=== PATIENT | female | born 1960 | race Caucasian/White ===

== ENCOUNTER 2016-10-14 14:49 | Day surgery (SDC) | payer BC ==
--- NOTE | ~2016-10-14 | OP ---
Record Of Operation [facility] [address] [place]. [address] NAME: MELANIE HERNANDEZ : 56 STATUS : [facility]#: [id number] AGE: 56 ADM/REG DATE : 10/14/16 MR#: [id number] REPORT SERV DATE: 10/14/16 DICTATED BY: DEANDRE FLEMING DATE: 10/14/16 REPORT STATUS : Draft TRANSCRIBED BY: MODReal DATE: 10/14/16 DATE OF PROCEDURE: 10/14/2016 PREOPERATIVE DIAGNOSES: 1. Left ureteral stone. 2. Left renal stones. 3. Urinary tract infection. POSTOPERATIVE DIAGNOSES: 1. Left ureteral stone. 2. Left renal stones. 3. Urinary tract infection. PROCEDURE PERFORMED: Cystoscopy, left retrograde pyelogram, left ureteral stent insertion. ANESTHESIA: General. ESTIMATED BLOOD LOSS: None. INDICATIONS: This is a 56-year-old white female, who presented to the office today with left flank pain and gross hematuria. She was found to have infected appearing urine. A noncontrast CT of the abdomen and pelvis was performed, showing an obstructing left ureteral stone adjacent to L5 as well as bilateral nonobstructing renal calculi. She had fairly marked left hydronephrosis as well as perinephric inflammatory changes. We elected to proceed with cystoscopy and ureteral stent placement today. Risks of infection, bleeding, failure, and need for further surgery have been discussed. PROCEDURE IN DETAIL: The patient was taken to the operating room and underwent a general anesthetic. She was placed in the lithotomy position on the table, and her external genitalia were sterilely prepped and draped. The 22-Mauritian cystoscope sheath with 30-degree lens was inserted under direct vision per urethra with the aid of the video monitor. There was a prominent cystocele. Single orifices were seen bilaterally. The urine in the bladder was somewhat cloudy. The bladder was actually irrigated and drained a couple of times to improve visibility. The left orifice was cannulated with a 5-Mauritian open-ended catheter and a retrograde pyelogram was obtained showing a normal caliber distal ureter. There was a stone in the left ureter adjacent to the L5 vertebral body which was obstructing and proximal to this, there was moderate hydroureteronephrosis. I was able to advance a 5- Mauritian open-ended catheter past the stone up into the collecting system of the kidney and the urine which egress was whitish in color. An 0.038 guidewire was advanced up into the collecting system of the kidney and over this, a 6-Mauritian x 28 cm Contour stent was advanced such that the proximal end of the stent was observed to coil in the renal pelvic region of the left kidney under fluoroscopic guidance and the distal end of the stent was visually observed to coil in the bladder following removal of the guidewire. We got an egress of whitish debris laid in urine. The bladder was drained. All endoscopic apparatus was removed. A brief bimanual pelvic exam confirmed a significant cystocele. The patient was then taken to recovery in stable condition. Record Of Operation [place] [id number] [facility] [place]. [address] NAME: MELANIE HERNANDEZ : 56 STATUS : [facility] PAT#: [id number] AGE: 56 ADM/REG DATE : 10/14/16 MR#: [id number] REPORT SERV DATE: 10/14/16 DICTATED BY: DEANDRE FLEMING DATE: 10/14/16 REPORT STATUS : Draft TRANSCRIBED BY: ADRIÁN DATE: 10/14/16 CYNTHIA/ADRIÁN Deandre Fleming M.D. / [id number] CC: Deandre Fleming M.D.
[2016-10-14 15:33] LABS: HEMATOCRIT 35.9 % (36.0-48.0); HEMOGLOBIN 12.3 g/dL (12.0-16.0)
[2016-10-21] MEDS ORDERED: AZO STANDARD PO (15:23)
[2016-10-21] MEDS ORDERED: ANTIBIOTIC (15:24)
== END 2016-10-14 20:14 | disposition home or self-care (01) ==
LOC: SDC 14:49
PROVIDERS: Urology
PROC: BT1FYZZ Fluoroscopy of Left Kidney, Ureter and Bladder using Other Contrast (ICD-10-PCS; 2016-10-14)
PROC: 0T778DZ Dilation of Left Ureter with Intraluminal Device, Via Natural or Artificial Opening Endoscopic (ICD-10-PCS; principal; 2016-10-14 15:15)
DX: N13.6 Pyonephrosis (principal); Z79.899 Other long term (current) drug therapy
CPT/HCPCS: 74420; 85014; 85018; 93005; A9270-GY; C1758; C2617; J1956; J2250; J2405; J3010; Q9967

== ENCOUNTER 2016-10-27 07:33 | Day surgery (SDC) | payer BC ==
--- NOTE | ~2016-10-27 | OP ---
Record Of Operation [facility] [address] [place]. [address] NAME: MELANIE HERNANDEZ : 56 STATUS : [facility]#: [id number] AGE: 56 ADM/REG DATE : 10/27/16 MR#: [id number] REPORT SERV DATE: 10/27/16 DICTATED BY: DEANDRE FLEMING DATE: 10/27/16 REPORT STATUS : Draft TRANSCRIBED BY: MODReal DATE: 10/27/16 DATE OF PROCEDURE: 10/27/2016 PREOPERATIVE DIAGNOSES: 1. Left ureteral and left renal stones. 2. History of Escherichia coli urinary tract infection, status post stent placement. 3. History of recurrent stone disease. POSTOPERATIVE DIAGNOSES: 1. Left ureteral and left renal stones. 2. History of Escherichia coli urinary tract infection, status post stent placement. 3. History of recurrent stone disease. PROCEDURE PERFORMED: Cystoscopy, left retrograde pyelogram, left flexible ureterorenoscopy, with holmium laser fragmentation of multiple calculi, and stent exchange. SURGEON: Deandre Fleming M.D. ANESTHESIA: General. ESTIMATED BLOOD LOSS: 5 mL. INDICATIONS: This is a 56-year-old, white female, recently presented to the office with flank pain and dirty urine. Culture grew out E coli. She was found to have a large obstructing mid left ureteral stone with multiple nonobstructing left renal calculi. She has had a stent placed, and has undergone appropriate round of antibiotics, and we are now planning definitive stone treatment. Risks of infection, bleeding, failure, need for further surgery, prolonged stenting, etc. were reviewed. PROCEDURE IN DETAIL: The patient was taken to the operating room and underwent a general anesthetic. She was placed in the lithotomy position on the table, and her external genitalia were sterilely prepped and draped. The 22-South African cystoscope sheath with 30-degree lens was inserted under direct vision per urethra with the aid of the video monitor. The bladder was inspected and the mucosa looked normal. She did have a very pronounced cystocele. The distal end of the left stent was visualized, there was bullous edema around the left orifice. The right orifice looked normal. The distal end of the stent was grasped and pulled out of the urethral meatus and 0.038 guidewire was advanced through the stent up into the collecting system of the kidney under fluoroscopic guidance. An 05/29-South African ureteral access sheath with obturator was then advanced over the guidewire again under fluoroscopic guidance right up to the level of the impacted stone at about the L4-5 level. A second guidewire was placed through the access sheath and the sheath and obturator were replaced over one of the two guidewires leaving the other in place as a safety wire. The flexible ureteroscope was then advanced through the access sheath and the stone was immediately encountered, impacted in the left mid ureter. A 200 micron laser fiber was used to fragment the stone into small pieces. One of the larger pieces was removed with a basket and sent for analysis. The ureter around the stone was irritated. The scope was then Record Of Operation [address] [place]. [address] NAME: MELANIE HERNANDEZ : 56 STATUS : [facility] PAT#: [id number] AGE: 56 ADM/REG DATE : 10/27/16 MR#: [id number] REPORT SERV DATE: 10/27/16 DICTATED BY: DEANDRE FLEMING DATE: 10/27/16 REPORT STATUS : Draft TRANSCRIBED BY: ADRIÁN DATE: 10/27/16 advanced proximal to the site of stone impaction. The ureter was smoothly dilated. The renal collecting system was inspected. There was a relatively large stone in an upper pole calyx with a tight infundibulum. There was some stone debris in the mid pole calyx as well. The 200 micron laser fiber was used to fragment all of the visible stones down into the 1 to 2 mm range. The collecting system was inspected a couple of times and at the conclusion of the laser procedure, no significant residual calculi were noted. The scope was then withdrawn down through the ureter with no new findings there either. The cystoscope was reinserted over the guidewire and a 6-South African x 28 cm contour stent was advanced over the guidewire such that the proximal end of the stent was observed to coil in the collecting system of the kidney under fluoroscopic guidance, and the distal end of the stent was visually observed to coil in the bladder following removal of the guidewire. The stent was left connected to a string dangle which was taped to the patient's inner thigh. The bladder was drained. All endoscopic apparatus was removed and the patient was taken to recovery in stable condition. DS/MODL Deandre Fleming M.D. / [id number] CC: Deandre Fleming M.D.
[~2016-10-27 07:33] MED LIST: ANTIBIOTIC; AZO STANDARD PO
[2016-10-27 08:08] LABS: BASOPHILS 0.9 %; BASOPHILS ABSOLUTE 0.07 10/3/uL (0.0-0.16); EOSINOPHILS 3.7 %; EOSINOPHILS ABSOLUTE 0.29 10/3/uL (0.0-0.53); HEMATOCRIT 38.3 % (36.0-48.0); HEMOGLOBIN 12.8 g/dL (12.0-16.0); IMMATURE GRANULOCYTES 0.3 %; IMMATURE GRANULOCYTES ABSOLUTE 0.02 10/3/uL (0.0-0.11); LYMPHOCYTES 32.1 %; MEAN CORPUS HGB CONC 33.4 g/dL (32.0-36.0); MEAN CORPUSCULAR HEMOGLOB 31.9 pg (26.0-34.0); MEAN CORPUSCULAR VOLUME 95.5 fL (80-100); MEAN PLATELET VOLUME 8.5 fL (9.2-13.0); MONOCYTES 6.7 %; MONOCYTES ABSOLUTE 0.52 10/3/uL (0.21-1.20); NEUTROPHILS 56.3 %; PLATELET COUNT 475 10/3/uL (150-400); RBC DISTRIBUTION WIDTH 12.7 % (12.0-16.0); RED CELL COUNT 4.01 10/6/uL (4.0-5.6); WHITE BLOOD CELLS 7.8 10/3/uL (4.5-10.5)
[2016-10-27 08:16] LABS: MANUAL DIFF NO %
[2016-10-27 08:22] LABS: BUN (BLOOD UREA NITROGEN) 19 MG/DL (6-23); CALCIUM, SERUM 8.6 MG/DL (8.5-10.4); CHLORIDE, SERUM 110 MMOL/L (96-112); CO2 (CARBON DIOXIDE) 25 MMOL/L (24-34); CREATININE 0.94 MG/DL (0.55-1.02); GFR AFRICAN AMERICAN 78 ML/MIN (>=60); GFR NON AFRICAN AMERICAN 67 ML/MIN (>=60); GLUCOSE, SERUM 114 MG/DL (60-99); POTASSIUM, SERUM 4.5 MMOL/L (3.5-5.3); SODIUM, SERUM 145 MMOL/L (135-148)
[2016-11-01 02:12] LABS: SOURCE OF STONE Left Ureteral Kidney (()); STONE COMPOSITION TWO DNR (())
== END 2016-10-27 13:32 | disposition home or self-care (01) ==
LOC: SDC 07:33
PROVIDERS: Urology
PROC: 0T778DZ Dilation of Left Ureter with Intraluminal Device, Via Natural or Artificial Opening Endoscopic (ICD-10-PCS; 2016-10-27)
PROC: 0TF48ZZ Fragmentation in Left Kidney Pelvis, Via Natural or Artificial Opening Endoscopic (ICD-10-PCS; 2016-10-27)
PROC: BT1FYZZ Fluoroscopy of Left Kidney, Ureter and Bladder using Other Contrast (ICD-10-PCS; 2016-10-27)
PROC: 0TF78ZZ Fragmentation in Left Ureter, Via Natural or Artificial Opening Endoscopic (ICD-10-PCS; principal; 2016-10-27 08:45)
DX: N20.2 Calculus of kidney with calculus of ureter (principal); K21.9 Gastro-esophageal reflux disease without esophagitis; Z79.899 Other long term (current) drug therapy; Z90.710 Acquired absence of both cervix and uterus; Z98.890 Other specified postprocedural states; Z90.49 Acquired absence of other specified parts of digestive tract
CPT/HCPCS: 74420; 80048; 82365; 85025; C1758; C2617; J1885; J1956; J2250; J2370; J2405; J2550; J2710; J3010; Q9967